=== PATIENT | female | born 1990 | race Caucasian/White ===

== ENCOUNTER 2017-01-15 19:50 | Outpatient (CLI) | payer BC ==
[2017-01-15 20:22] VITALS: BP 121/70; PULSE 85; RESP 16; TEMP 97.7
[2017-01-15] MEDS: LACTATED RINGERS 1,000 ML IV SCH ×2 (20:46→21:43)
[2017-01-15 21:13] LABS: Appearance,Urine Cloudy (Clear); Bilirubin,Urine 1+ (Negative); Glucose,Urine (UA) Negative (Negative); Ketones,Urine Negative (Negative); Leukocyte Esterase,Urine Negative (Negative); Mucus,Urine Occasional /hpf; Nitrite,Urine Negative (Negative); Particle Count 6302; Protein,Urine Trace (Negative); RBC,Urine <1 /hpf (0-5); Specific Gravity,Urine 1.018 (1.001-1.035); Squamous Epithelial Cell,Urine 4 /hpf (0-4); UA Billing (MACRO vs. MICRO) MICRO; WBC,Urine 6 /hpf (0-5)
== END 2017-01-15 21:46 | disposition home or self-care (01) ==
LOC: FBPOP 19:50
PROVIDERS: ATTEND Obstetrics & Gynecology
DX: O21.9 Vomiting of pregnancy, unspecified (principal); Z3A.31 31 weeks gestation of pregnancy
CPT/HCPCS: 59025; 81001; 96360; 99214

== ENCOUNTER 2017-03-06 10:08 | Inpatient (IN) | payer BC ==
[2017-03-02 14:50] VITALS: BMI 33.9
[~2017-03-06 10:08] MED LIST: CITRIC ACID-SODIUM CITRATE 15 ML CUP PO ONE; LACTATED RINGERS 1,000 ML IV ONE; ceFAZolin 2 GM in SODIUM CHLORIDE 0.9% 100 ML IVPB ONE
[2017-03-06 10:39] LABS: Basophils % (A) 0 %; CH 30.2; CHCM 35.7; Eosinophils % (A) 0 %; HCT 37.7 % (34.0-46.0); HDW 3.04; HGB 13.3 gm/dL (11.4-16.0); Luc # (Auto) 0.15; Luc % (Auto) 2; Lymphocytes % (A) 23 %; MCH 30.1 pg (25.0-35.0); MCHC 35.4 g/dL (31.0-37.0); MCV 85.1 fL (80.0-100.0); Monocytes # (A) 0.5 k/uL (0-1.0); Monocytes % (A) 6 %; Neutrophils # (A) 6.1 k/uL (1.3-7.7); Neutrophils % (A) 69 %; RBC 4.43 m/uL (3.80-5.40); RDW 14.9 % (11.5-15.5); WBC 8.9 k/uL (3.8-10.6)
[2017-03-06] MEDS: LACTATED RINGERS 1,000 ML IV SCH ×4 (11:17→22:31)
[2017-03-06] MEDS ORDERED: ONDANSETRON 4 MG/2 ML VIAL ONE (12:11)
[2017-03-06] MEDS ORDERED: OXYTOCIN 10 UNIT/ML 1 ML VIAL ONE (12:11)
[2017-03-06] MEDS ORDERED: KETOROLAC 30 MG/ML 1 ML VIAL ONE (12:11)
[2017-03-06] MEDS ORDERED: ePHEDrine 50 MG/ML 1 ML AMP ONE (12:11)
[2017-03-06] MEDS ORDERED: MORPHINE SULFATE (PF) 0.3 MG/0.3 ML SYR ONE (12:11)
[2017-03-06] MEDS ORDERED: NALBUPHINE 10 MG/ML AMPUL ONE (12:11)
[2017-03-06] MEDS ORDERED: GLYCOPYRROLATE 0.2 MG/ML 2 ML VIAL ONE (12:11)
[2017-03-06] MEDS ORDERED: ONDANSETRON 4 MG/2 ML VIAL IVP PRN ×2 (12:46→13:12)
[2017-03-06] MEDS ORDERED: MORPHINE SULFATE 4 MG/ML SYRINGE IVP PRN (12:46)
[2017-03-06] MEDS ORDERED: NALBUPHINE 10 MG/ML AMPUL IV PRN (12:46)
[2017-03-06] MEDS ORDERED: NALOXONE 0.4 MG/ML 1 ML VIAL IV PRN ×2 (12:46→13:12)
[2017-03-06] MEDS ORDERED: diphenhydrAMINE 25 MG CAP PO PRN (13:12)
[2017-03-06] MEDS ORDERED: diphenhydrAMINE 50 MG/ML 1 ML VIAL IVP PRN ×2 (13:12)
[2017-03-06] MEDS ORDERED: diphenhydrAMINE 50 MG CAP PO PRN (13:12)
[2017-03-06] MEDS ORDERED: Acetaminophen-Codeine 300-30mg TAB PO PRN (13:12)
[2017-03-06] MEDS ORDERED: SIMETHICONE 80 MG CHEWABLE PO PRN (13:12)
[2017-03-06] MEDS ORDERED: LANOLIN CREAM 5 GM TUBE TOPICAL PRN (13:12)
[2017-03-06] MEDS ORDERED: METOCLOPRAMIDE 5 MG/ML 2 ML VIAL IVP PRN (13:12)
[2017-03-06] MEDS ORDERED: ACETAMINOPHEN TAB 325 MG TAB PO PRN (13:12)
[2017-03-06] MEDS ORDERED: ZOLPIDEM 5 MG TAB PO PRN (13:12)
--- NOTE | 2017-03-06 13:19 | P.HPOB ---
History of Present Illness H&P Date: 03/06/17 Chief Complaint: Repeat section The patient is a 26-year-old 2 para 1001 admitted at 39-0/7 weeks as established by last menstrual period and confirmed by 8 week ultrasound. She is admitted with a history of previous section for breech presentation and is declining vaginal trial of labor. She has instead requested repeat low transverse section. Her has been uncomplicated and group B strep status is negative. On labor and delivery, all signs are reassuring. Obstetrical history: 2 para 1001 with 1 term vaginal delivery for breech presentation. Current statistics are listed in history present illness. EDC of 03/13/2017 was established by last menstrual period and confirmed by 8 week ultrasound. Laboratory workup demonstrates a blood type of B+ with a negative antibody screen. Rubella status is immune. All other laboratory workup was within normal limits. Early Glucola was within normal limits while second trimester Glucola was initially elevated but followed up with a normal three-hour glucose tolerance test. Group B strep status is negative. Gynecologic history: Unremarkable with no history of any infections to include STDs. Review of Systems Review of systems is confined to history of present illness. Past Medical History Past Medical History: No Reported History Additional Past Medical History / Comment(s): BULGING DISC WITH BACK PAIN. , - LMP May. History of Any Multi-Drug Resistant Organisms: None Reported Past Surgical History: Section Additional Past Surgical History / Comment(s): exploratory lap for endometriosis Past Anesthesia/Blood Transfusion Reactions: No Reported Reaction Past Psychological History: No Psychological Hx Reported Smoking Status: Never smoker Past Alcohol Use History: None Reported Additional Past Alcohol Use History / Comment(s): NO ALCOHOL WHILE . Past Drug Use History: None Reported - Past Family History Mother Family Medical History: No Reported History Medications and Allergies Home Medications Medication Instructions Recorded Confirmed Type Pnv,Calcium 72/Iron/Folic Acid 1 tab PO DAILY 01/15/17 03/02/17 History [ Plus Tablet] Allergies Allergy/AdvReac Type Severity Reaction Status Date / Time No Known Allergies Allergy Verified 03/02/17 14:40 Exam - Vital Signs Vital signs: Vital Signs Temp Pulse Resp BP 03/06/17 10:25 97.2 F L 102 H 16 111/83 Intake and Output 03/05/17 03/06/17 03/06/17 22:59 06:59 14:59 Other: Weight 95.254 kg Patient Weight 03/07/17 06:59 Weight 95.254 kg In general, this is a well-developed, well-nourished white female in no acute distress. Her heart has a regular rhythm and rate without murmur. Her lungs are clear to auscultation bilaterally in all melara. Her abdomen is gravid, nondistended, has normal active bowel sounds, is soft, nontender, and without any palpable masses aside from uterine fundus. Her extremities are without any cyanosis, clubbing, or significant edema and are nontender to palpation bilaterally. Digital cervical examination is deferred. Results Result Diagrams: 03/06/17 10:25 Assessment and Plan (1) Previous section Status: Acute (2) Term Status: Acute Plan: The patient is admitted for repeat low transverse section. The risks and complications of the procedure have been thoroughly discussed and she has understood and agreed to proceed.
--- NOTE | 2017-03-06 13:26 | P.OP ---
Date of Procedure: 03/06/17 Preoperative Diagnosis: #1. 39-0/7 weeks, previous section, declining labor Postoperative Diagnosis: Same Procedure(s) Performed: #1. Repeat low transverse section Implants: Anesthesia: spinal Surgeon: Jb Willingham Electrostatic Paint Operator #1: Elva Rausch Estimated Blood Loss (ml): 500 IV fluids (ml): 1,000 Urine output (ml): 200 Pathology: none sent Condition: stable Disposition: floor Indications for Procedure: Operative Findings: She was taken the operating room where she was delivered of a viable 8 lbs. 7 oz. baby boy with Apgars of 9 at 1 minute and 9 at 5 minutes delivered in the left occiput anterior position. The placenta was delivered manually, intact, and grossly normal with a grossly normal three-vessel cord. The placenta was to be discarded as the patient nor infant carry any risk factors. The uterus, tubes, and ovaries were entirely normal to inspection. There was minimal scarring though a moderate amount at the level of the fascia and rectus muscles. Description of Procedure: The patient was prepped and draped in usual fashion after spinal anesthesia was administered by the anesthesiologist. A Pfannenstiel incision was made through pre-existing scar and extended into the abdominal cavity without difficulty. There was some scarring noted at the level of the fascia and muscles which was taken down sharply. The bladder peritoneum was elevated, incised, and reflected distally. A 2 cm incision was made in the transverse plane of the lower uterine segment to enter the uterus at which time clear fluid was noted. Incision was extended in both directions using the bandage scissors. The head was encountered floating above the level of the incision. It was pushed into the incision but the angle of delivery became difficult forcing application of a mighty Vac to the occiput. This easily delivered the head through the incision where the mighty Vac was released. The nose and mouth were thoroughly suctioned and the remainder of the infant delivered onto the field where the cord was doubly clamped, cut, and the passed for resuscitative measures with weight and Apgars as noted above. A segment of cord was doubly clamped, cut, and set aside should cord gases become necessary. The placenta was delivered manually and intact as noted above. The uterus was exteriorized and the interior cavity of the uterus swept of any remaining placental or membranous fragments. The margins of the incision were grasped with Bryant clamps and the incision closed in 2 layers. The first layer was a running locking stitch of 0 chromic catgut followed by an imbricating layer of 0 chromic catgut. One point of bleeding on the left central portion of the incision was made hemostatic with 2 separate pmvuwj-pe-jyzsx stitches of 0 chromic catgut. Any other small points of bleeding were made hemostatic with the Bovie. The posterior cul-de-sac was suctioned using a guard. The uterus was replaced within the abdominal cavity and the gutters swept of any remaining blood, fluid, or clot. The incision was reexamined and found to be hemostatic after placement of the second otvxqo-oc-gcyay stitch. The layer of muscles were examined after loosely reapproximating the parietal peritoneum. These were found to be hemostatic as well. The fascia was closed with 2 running stitches of 0 Vicryl proceeding from lateral margins to the midpoint. The subcutaneous tissues were irrigated, made hemostatic with the Bovie, and reapproximated with a running stitch of 30 plain catgut. The skin was reapproximated with a running subcuticular stitch of 4-0 Vicryl proceeding from margin to margin. This was followed by placement of half-inch Steri-Strips using Mastisol. Estimated blood loss for the entire case was approximate 500 mL. There were no complications. All sponge, instrument, and needle counts were correct. The patient tolerated the procedure well and proceeded to the recovery room in stable condition. Both mother and are resting comfortably in recovery.
[2017-03-06] MEDS: KETOROLAC 30 MG/ML 1 ML VIAL IVP PRN (19:30)
[2017-03-06] MEDS: SENNOSIDES-DOCUSATE SODIUM 1 EACH TAB PO SCH (21:40)
[2017-03-07] MEDS: KETOROLAC 30 MG/ML 1 ML VIAL IVP PRN ×2 (04:03→10:23)
[2017-03-07 08:05] LABS: Basophils % (A) 0 %; CH 30.5; CHCM 34.8; Eosinophils % (A) 0 %; HCT 31.9 % (34.0-46.0); HDW 2.95; HGB 11.1 gm/dL (11.4-16.0); Luc # (Auto) 0.14; Luc % (Auto) 1; Lymphocytes % (A) 10 %; MCH 30.5 pg (25.0-35.0); MCHC 34.7 g/dL (31.0-37.0); Mean Platelet Volume 8.4; Monocytes # (A) 0.5 k/uL (0-1.0); Monocytes % (A) 5 %; Neutrophils # (A) 8.2 k/uL (1.3-7.7); Neutrophils % (A) 83 %; RBC 3.62 m/uL (3.80-5.40); RDW 15.5 % (11.5-15.5); WBC 9.8 k/uL (3.8-10.6); WBC (Perox) 10.02
--- NOTE | 2017-03-07 09:10 | P.PNOBGPC ---
Subjective - Subjective Patient reports: Reports appetite normal, Reports pain well controlled, Reports ambulating normally, Reports other (Patient unable to void at this point, has been straight cathed 1.) [place]: doing well Objective - Vital Signs Latest vital signs: Vital Signs Temp Pulse Resp BP Pulse Ox 03/07/17 07:00 16 98 03/07/17 05:00 16 99 03/07/17 04:00 98.5 F 88 16 125/66 97 03/07/17 03:00 16 97 03/07/17 01:00 16 98 03/06/17 23:55 98.3 F 94 16 124/72 03/06/17 23:00 16 98 03/06/17 21:00 16 98 03/06/17 19:40 97.6 F 66 16 117/68 97 03/06/17 16:00 97.5 F L 72 18 116/65 97 03/06/17 15:09 97.7 F 68 18 132/58 96 03/06/17 14:39 61 16 122/63 03/06/17 14:09 65 17 122/65 98 03/06/17 13:54 81 18 119/72 98 03/06/17 13:46 97 03/06/17 13:39 72 17 139/56 98 03/06/17 13:24 74 17 141/67 98 03/06/17 13:09 97.0 F L 82 17 136/87 98 03/06/17 10:25 97.2 F L 102 H 16 111/83 Intake and Output 03/06/17 03/07/17 03/07/17 22:59 06:59 14:59 Output Total 550 600 Balance -550 -600 Output: Urine 550 600 Straight 600 Uretheral (North) 350 Other: Voiding Method Indwelling Catheter # Voids 0 - Exam Extremities: Present: normal Abdomen: Present: normal appearance, soft. Absent: distention, tenderness Incision: Present: normal, dry, intact Uterus: Present: normal, firm (The uterine fundus as tonic and nontender just below the umbilicus.) - Labs Labs: Abnormal Lab Results - Last 24 Hours (Table) 03/07/17 Range/Units 07:41 RBC 3.62 L (3.80-5.40) m/uL Hgb 11.1 L (11.4-16.0) gm/dL Hct 31.9 L (34.0-46.0) % Neutrophils # 8.2 H (1.3-7.7) k/uL Assessment and Plan (1) Previous section Current Visit: Yes Status: Acute Code(s): Z98.891 - HISTORY OF UTERINE SCAR FROM PREVIOUS SURGERY SNOMED Code(s): 010301629 (2) Term Current Visit: Yes Status: Acute Code(s): Z34.80 - ENCOUNTER FOR SUPRVSN OF NORMAL , UNSP TRIMESTER SNOMED Code(s): 79750046 (3) S/P section Narrative/Plan: Continue routine postoperative care. We will make every effort to allow her to void on her own prior to repeating a straight catheterization. Bladder scan will be carried out prior to straight cath to document the the volume of urine in the bladder that she is unable to void. I do anticipate discharging home tomorrow assuming no complications or further problems with voiding. Current Visit: Yes Status: Acute Code(s): Z98.89 - OTHER SPECIFIED POSTPROCEDURAL STATES * DO NOT USE * SNOMED Code(s): 593356880
[2017-03-07] MEDS: SENNOSIDES-DOCUSATE SODIUM 1 EACH TAB PO SCH ×2 (09:34→21:11)
[2017-03-07] MEDS: IBUPROFEN 600 MG TAB PO PRN (17:26)
[2017-03-07] MEDS: Acetaminophen-Codeine 300-30mg TAB PO PRN (21:12)
[2017-03-07 21:46] VITALS: RESP 16
[2017-03-08] MEDS: IBUPROFEN 600 MG TAB PO PRN ×2 (00:04→09:11)
[2017-03-08] MEDS: Acetaminophen-Codeine 300-30mg TAB PO PRN ×2 (04:09→11:07)
--- NOTE | 2017-03-08 08:52 | P.DS ---
Providers Date of admission: 03/06/17 10:08 Expected date of discharge: 03/08/17 Attending physician: Jb Willingham Primary care physician: Stated None - Discharge Diagnosis(es) (1) Previous section Current Visit: Yes Status: Acute (2) Term Current Visit: Yes Status: Acute (3) S/P section Current Visit: Yes Status: Acute Hospital Course: The patient is a 26-year-old 2 para 1001 admitted at 39-0/7 weeks by good dating parameters perches admitted for repeat low transverse section with an otherwise uncomplicated . Group B strep status is negative. She was taken the operating room where she was delivered by repeat low transverse section of a viable 8 lbs. 7 oz. baby boy with Apgars of 9 at 1 minute and 9 at 5 minutes. Her postoperative course was unremarkable vital signs remaining stable and her temperature was afebrile throughout. She was deemed stable for discharge on postoperative day #2 was discharged home to follow-up in the office in 2 weeks for an incision check and 6 weeks routinely. Discharge instructions included calling for any significantly increased bleeding or foul-smelling lochia, significantly increased fever abdominal pain, perineal complaints, breast complaints, incisional complaints, or anything else that concerned her. She was additionally instructed to have nothing in the vagina for at least 6 weeks time to include intercourse and to abstain from any heavy lifting over the same period of time. She was last instructed to do no driving until off of all pain medications or 2 weeks' time, whichever came first. She understood her instructions and agrees to follow up as noted above. Discharge medications included a prescription for Tylenol 3, 1-2 by mouth every 6 hours when necessary pain, #30 dispensed with no refills. She was additionally to continue vitamins as she has opted to breast-feed. Otherwise [id number] analgesic pain medications will be used as well. Discharge hemoglobin and hematocrit were 11.1 and 31.9 respectively. Maternal blood type is B+ and rubella status is immune. Procedures: #1. Repeat low transverse section Patient Condition at Discharge: Good Plan - Discharge Summary New Discharge Prescriptions: No Action Pnv,Calcium 72/Iron/Folic Acid [ Plus Tablet] 1 tab PO DAILY Discharge Medication List Pnv,Calcium 72/Iron/Folic Acid [ Plus Tablet] 1 tab PO DAILY 01/15/17 [ History] Follow up Appointment(s)/Referral(s): Jb Willingham MD [STAFF PHYSICIAN] - 2 Weeks Discharge Disposition: HOME SELF-CARE
[2017-03-08] MEDS: SENNOSIDES-DOCUSATE SODIUM 1 EACH TAB PO SCH (09:11)
[2017-03-08 10:34] VITALS: BP 128/69; PULSE 74; TEMP 98.1
== END 2017-03-08 11:42 | disposition home or self-care (01) | DRG 766 ==
LOC: 4FBP 10:08
PROVIDERS: ADMIT Obstetrics & Gynecology; ATTEND Obstetrics & Gynecology
PROC: 10D00Z1 Extraction of Products of Conception, Low, Open Approach (ICD-10-PCS; principal; 2017-03-06 12:25)
DX: O34.211 Maternal care for low transverse scar from previous cesarean delivery (principal); Z37.0 Single live birth; Z3A.39 39 weeks gestation of pregnancy
CPT/HCPCS: 85025; 86850; 86900; 86901; 88307

== ENCOUNTER → 2020-11-30 | Outpatient (CLI) | payer BC ==
--- NOTE | 2020-11-30 22:26 | XR ---
EXAMINATION TYPE: XR chest 2V DATE OF EXAM: 11/30/2020 CLINICAL HISTORY: R07.89. Chest pain and shortness of breath. TECHNIQUE: Frontal and lateral view of the chest. COMPARISON: None FINDINGS: The cardiomediastinal silhouette is within normal limits for size. Pulmonary vasculature i s normal. There is no focal air space opacity, pleural effusion, or pneumothorax seen. The osseous st ructures are intact. IMPRESSION: No acute cardiopulmonary process.
== END | disposition home or self-care (01) ==
LOC: RADXRMAIN 17:34
PROVIDERS: ATTEND Physician Assistant
DX: R06.02 Shortness of breath (principal)
CPT/HCPCS: 71046

== ENCOUNTER → 2021-02-08 | Outpatient (CLI) | payer BC ==
[2021-02-08 18:40] LABS: Reticulocyte % 1.74 % (0.10-1.80)
[2021-02-08 19:24] LABS: Bilirubin, Conjugated 0.6 mg/dL (0.20-0.40); Total Bilirubin 2.3 mg/dL (0.2-1.2)
== END | disposition home or self-care (01) ==
LOC: LABWHC1 10:29
PROVIDERS: ATTEND Pediatrics
DX: E80.6 Other disorders of bilirubin metabolism (principal)
CPT/HCPCS: 36415; 82247; 83010; 83615; 85045

== ENCOUNTER → 2021-04-15 | Outpatient (CLI) | payer BC | END | disposition home or self-care (01) | LOC: LABWHC1 12:15 | PROVIDERS: ATTEND Pediatrics | DX: E80.6 Other disorders of bilirubin metabolism (principal) | CPT/HCPCS: 36415; 83010 ==

== ENCOUNTER → 2022-02-16 | Outpatient (CLI) | payer BC ==
--- NOTE | 2022-02-16 09:45 | US ---
EXAMINATION TYPE: US abdomen limited DATE OF EXAM: 02/16/2022 COMPARISON: NONE CLINICAL HISTORY: E80.6 HYPERBILIRUBINEMIA. Hyperbilirubinemia. EXAM MEASUREMENTS: Liver Length: 16.2 cm Gallbladder Wall: 0.17 cm CBD: 0.32 cm Right Kidney: 11.6 x 5.8 x 3.9 cm *Exam is limited due to overlying bowel gas. Pancreas: Limited visibility of tail. Liver: No abnormalities seen at this time. Gallbladder: Multiple hyperechoic foci with posterior shadowing seen within the gallbladder. Evidence for sonographic Bowers's sign: No CBD: Portions seen appear wnl. Right Kidney: No hydronephrosis or masses seen Visualized portion of pancreas unremarkable. IVC seen near hepatic dome. No worrisome intrahepatic ma ss or intrahepatic ductal dilatation. Mobile shadowing gallstones within gallbladder lumen. No perich olecystic fluid or abnormal wall thickening. No right-sided hydronephrosis. IMPRESSION: Gallstones without secondary ultrasound evidence for acute cholecystitis. No worrisome in trahepatic mass or intrahepatic ductal dilatation.
== END | disposition home or self-care (01) ==
LOC: RADUSWWP 08:55
PROVIDERS: ATTEND Pediatrics
DX: K80.20 Calculus of gallbladder without cholecystitis without obstruction (principal)
CPT/HCPCS: 76705